=== PATIENT | male | born 1960 | race Caucasian/White ===

== ENCOUNTER 2022-06-25 06:47 | Day surgery (SDC) | payer MEDICAID, SELFPAY ==
[2022-06-25] VITALS (8 sets, daily range): BP systolic 110–126; BP diastolic 70–89; PULSE 65–89; RESP 18–22; TEMP 36.3–37.2; O2SAT 95–100; BMI 47.2
--- NOTE | 2022-06-25 06:55 | PCM.HP.BLA ---
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: No Is patient in pain?: No Allergies atorvastatin [From Lipitor] Allergy (Severe, Verified 05/27/22 08:09) leg issue Medications pantoprazole 40 mg tablet,delayed release 40 mg PO DAILY 01/31/15 [History Confirmed 05/27/22] duloxetine 60 mg capsule,delayed release 60 mg PO DAILY 04/15/22 [History Confirmed 05/27/22] gabapentin 300 mg capsule 300 mg PO TID PRN 04/15/22 [History Confirmed 05/27/22] hydrochlorothiazide 25 mg tablet 25 mg PO DAILY 04/15/22 [History Confirmed 05/27/22] lisinopril 30 mg tablet 30 mg PO DAILY 04/15/22 [History Confirmed 05/27/22] rosuvastatin 40 mg tablet 40 mg PO DAILY 04/15/22 [History Confirmed 05/27/22] tamsulosin 0.4 mg capsule 0.4 mg PO DAILY 04/15/22 [History Confirmed 05/27/22] tramadol 50 mg tablet 50 mg PO Q8H PRN 05/12/22 [History Confirmed 05/27/22] methocarbamol 500 mg tablet 500 mg PO .QID PRN 05/27/22 [History Confirmed 05/27/22] PFSH Medical History?(Updated 05/27/22 @ 08:[address] Lyle Stockton MD) Atrial fibrillation Back problem Essential hypertension GERD (gastroesophageal reflux disease) Hearing problem High cholesterol History of left heart catheterization (LHC) (~05/11/21) Hypertension Mixed hyperlipidemia SARAH (obstructive sleep apnea) Paroxysmal atrial fibrillation Right rotator cuff tear Ventricular tachyarrhythmia Surgical History? H/O laminectomy Status post ablation of incompetent vein using laser Family History?(Updated 05/27/22 @ 08:07 by Sherry Tuesday) Mother Colon cancer Diabetes Hypertension High cholesterol Uterine cancer Cancer ?? ? breastFather Myocardial infarction Heart disease Hypertension High cholesterolBrother Sleep apnea Diabetes HypertensionSister Autoimmune disease Fibromyalgia Hypertension Social History? household members:? spouse current occupational status:? retired current occupation:? 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 Never smoker Electronic Cigarette Use:? not used alcohol intake:? current alcohol intake frequency: holidays/special occasions only Alcohol type: beer and hard liquor substance use type:? does not use what type of physical activity do you participate in:? none do you feel safe at home:? Yes HPI HPI HPI: JADEN FRANCISCO, is a 62 M who presents to the office today for surgical consideration regarding pursuing a upper and lower endoscopy.? The patient is referred by Dr. Kelly Park and a written copy of my surgical consult recommendations return to her.? Laboratory as of May 10, 2022 demonstrates a white count of 8.1 with a normal 14.1 hematocrit 41.7 and platelet count of 296,000.? BUN is 22 and creatinine 0.76.? During her recent office visit the patient made note that he would like to have referral for screening colonoscopy.? In addition he has a history of gastroesophageal reflux disease.? He had had a recent fall from a ladder resulting in admission to [facility].? He has a history of atrial fibrillation.? Medical comorbidities include morbid obesity with a BMI between 40 and 44.9.? Among his other medications he is on pantoprazole 40 mg daily.? He is also on tramadol as needed. The patient has obstructive sleep apnea.? He is supposed to wear BiPAP.? He quickly states that he absolutely does not wear does not tolerate it.? He states that in the past he has had atrial fibrillation.? He states most the time he is in a regular rhythm.? He is not on any anticoagulant. States that he has had chronically swollen legs.? He has had right lower extremity venous ablation therapy about 5 to 6 years ago.? He denies history of pulmonary embolus or DVT.? He does not wear support hose He does agree and states that he does wheeze particularly if he is trying to lie flat.? He is not on any inhalers The patient states that he intermittently notices a feeling of a flap or movement or partial obstruction at his oropharynx that he has then massage and help clear.? He would like to have this evaluated ROS General General: No weight change, appetite, fatigue, colon cancer, breast cancer or weakness HEENT HEENT: No difficulty swallowing, eye injury, eye surgery, swollen glands or hoarseness Endo Endocrine: No thyroid disease, diabetes mellitus, thyroid cancer, Hair loss, heat intolerance or cold intolerance Skin Skin: No rash or changing moles Musc Musculoskeletal: Yes back problems and arthritis; No rheumatoid arthritis, gout or joint pain Cardio Cardiovascular: Yes atrial fibrillation and high blood pressure; No murmur, pacemaker, heart disease, heart attack, heart stent, palpitations, shortness of breat with exertion or chest pain Psych Psychiatric: No depression, anxiety or hearing voices Resp Respiratory: Yes shortness of breath, Yes sleep apnea, No cough, No COPD, No asthma, No emphysema and No wheezing Gastro Gastrointestinal: No abdominal pain, No nausea or vomiting, No diarrhea, No constipation, No blood in stool, Yes acid reflux, No hemorrhoids, No ulcers, No gallbladder problem and No black,tarry stools Jermaine Hematologic: No blood thinners, No blood disorders, No bleeding, No anemia and No blood clots Neuro Neurologic: No system reviewed and no additional complaints, except as documented, No as per HPI, No abnormal gait, No abnormal hearing, No abnormal movements, No abnormal speech, No behavioral changes, No burning sensations, No confusion, No convulsions, No disequilibrium, No dizziness, No localized weakness, No frequent falls, No headache(s), No lack of coordination, No loss of vision, No memory loss, No numbness, No other visual disturbances, No radicular pain, No restless legs, No sensory deficit, No syncope, No tingling, No tremor(s), No weakness and No other Exam Const General: cooperative, comfortable and no acute distress [facility] Head: normal to inspection Eyes General: appearance normal, both eyes and all related structures Neck Other: Thick neck no palpable masses Chest Chest palpation & inspection: normal inspection of the chest Resp Other: Expiratory wheezing no particular when the patient is lying supine.? Reasonable inspiratory effort Cardio Rate: tachycardic Rhythm: regular rhythm GI Other: Notably overweight, I cannot palpate any internal organs Musc Other: Mild cervical kyphosis Skin Other: Marked hyperpigmentation and lichenification of the skin of the both lower extremities Neuro General: patient alert, patient awake and patient oriented x3 Extrem General: no calf tenderness Psych Appearance: grossly normal Assessment and Plan Assessment and Plan (1) GERD (gastroesophageal reflux disease): ?Status:?Acute (2) Screening for intestinal cancer: ?Status:?Acute Plan I recommended the patient a combined esophagogastroduodenoscopy with possible biopsy.? Very careful inspection of the oropharynx to the best my ability will be pursued secondary to the patient's complaint of globus type sensation.? Also recommend to him a colonoscopy with possible biopsy or polypectomy.? An adult colonoscope will be utilized.? I anticipated a 2-day bowel prep secondary to anticipated larger fecal load. He is aware of the technique, benefit, risk and alternatives.? He has had an opportunity to ask and have questions answered. When he lies supine he does have audible wheezing.? I will asked that he present earlier than typical so that anesthesia can review to see whether he would benefit from a preintervention aerosol The patient is aware that his morbid obesity will make this more challenging.? He is only a couple weeks out from his fall from a ladder and rib fractures.? We will delay our endoscopic intervention for at least 3 to 4 weeks to allow for further recovery.? We will also definitively use monitored anesthesia care for increased observation. I appreciate the opportunity of assisting with the surgical care Copy: MD Lyle Alejandro M.D., F.A.C.S I have re-examined the patient. There are no clinical changes since date of exam. Lyle Stockton M.D., F.A.C.S.
[2022-06-25] MEDS: Lactated Ringers 1,000 ML 15 ML IV (07:30)
[2022-06-25] MEDS: Ipratropium/Albuterol Sulfate 3 ML AMPUL.NEB INHALATION (07:42)
--- NOTE | 2022-06-25 08:45 | IMM_PTH ---
PATIENT: JADEN FRANCISCO LOC: EN U#:[id number] AGE/SX: 62/M ROOM: RE06/25/[address]: Dr. Lyle Stockton MD : 1960 BED: DIS: 06/25/2022 SPEC #: [id number] RECD: 06/25/22 12:51 STATUS: TAMAR REJg #: [id number] SABINE: 06/25/22 08:[address]: Lyle Stockton DEPT: IMMUNOHISTOCHEMISTRY RECD BY: Nancy Hamm ENTERED: 06/25/22 12:52 SP TYPE: IMMUNO OTHR DR: Dr. Kelly Park MD Tissues: A - Stomach, NOS Procedures: H Pylori (initial) PHYSICIAN & INSTITUTION [place] [id number] SPECIMEN INFORMATION: Tissue Source: A ? Gastric antrum Clinical Info: GERD, screening Specimen Number: [id number] CPT code: 48719 METHODOLOGY: Deparaffinized sections of prefer/formalin-fixed tissue or PAP/DQ stained slides are incubated with monoclonal/polyclonal antibodies/oligonucleotide probes. Localization is made via biotin free immunoperoxidase method. Appropriate controls are performed and reacted as expected. Results on target cell population are indicated in the following table: RESULTS: ANTIBODY / CLONE RESULT Block A H Pylori (polyclonal) negative These tests were developed and their performance characteristics determined by [facility]. They may not have been cleared or approved by the U.S. Food and Drug Administration. The FDA has determined that such clearance or approval is not necessary. The above immunohistochemical/dualISH markers are ordered and reviewed by the Pathologist. INTERPRETATION: A. Gastric antrum, biopsy: Negative for Helicobacter pylori organisms. AM:vincent 06/28/2022
--- NOTE | 2022-06-25 08:45 | EGD_PTH ---
PATIENT: JADEN FRANCISCO LOC: EN U#:[id number] AGE/SX: 62/M ROOM: RE06/25/[address]: Dr. Lyle Stockton MD : 1960 BED: DIS: 06/25/2022 SPEC #: [id number] RECD: 06/25/22 10:57 STATUS: TAMAR ZULMA #: [id number] SABINE: 06/25/22 08:[address]: Lyle Stockton DEPT: SURGICAL PATHOLOGY RECD BY: Raven Marinelli ENTERED: 06/25/22 11:18 SP TYPE: EGD BIOPSY OT DR: Dr. Kelly Park MD Tissues: A - Gastric mucous membrane B - Gastric fundus C - Esophagus, NOS D - Transverse colon Procedures: Special Stain Group II Surgery Specimen Level IV Alcian Blue/PAS (control) HEADER OPERATION: Colonoscopy, EGD ([facility] [place]) PRE-OP DIAGNOSIS: GERD, screening TISSUE SUBMITTED: A ? Gastric antrum biopsy for H. pylori and pathology, B ? Fundus polyp biopsy, C ? Distal esophagus biopsy, D ? Mid transverse polyp biopsy MICROSCOPIC DIAGNOSIS A. Gastric antrum, biopsy: Mild chronic inflammation. See comment. B. Gastric fundus polyp, biopsy: Fundic gland polyp. C. Distal esophagus, biopsy: No pathologic change. No evidence of goblet cell metaplasia. See comment. D. Mid transverse colon polyp, biopsy: Tubular adenoma. AM:vincent 06/28/2022 COMMENT A. The results of immunohistochemistry for Helicobacter pylori will be reported separately ([id number]). C. Alcian blue/PAS stain with matched control supports the above diagnosis. Glandular mucosa is not represented in the biopsy. MICROSCOPIC DESCRIPTION Slides are reviewed. GROSS DESCRIPTION A - Received in fixative is one container labeled with the patient's name and designated gastric antrum. The specimen consists of two irregular fragments of light ellington soft tissue that in aggregate measure 0.6 x 0.5 x 0.1 cm. The specimen is totally submitted in one cassette. B - Received in fixative is one container labeled with the patient's name and designated fundic polyp. The specimen consists of one irregular fragment of light ellington soft tissue that measures 0.5 x 0.5 x 0.1 cm. The specimen is totally submitted in one cassette. C - Received in fixative is one container labeled with the patient's name and designated distal esophagus. The specimen consists of multiple irregular fragments of light ellington soft tissue that in aggregate measure 1 x 0.2 x 0.1 cm. The specimen is totally submitted in one cassette. D - Received in fixative is one container labeled with the patient's name and designated mid transverse polyp. The specimen consists of one irregular fragment of light ellington soft tissue that measures 0.5 x 0.5 x 0.1 cm. The specimen is totally submitted in one cassette. / AM:vincent 06/25/2022 TC:3 CPT: 23987 x4, 96341
--- NOTE | 2022-06-25 09:56 | OP.EGD_ITS ---
Patient Name: Manuel Mcneill Procedure Date: 06/25/2022 9:09 AM Date of : 1960 Age: 62 Procedure: Upper GI endoscopy Indications: Dysphagia, Suspected esophageal reflux Providers: Lyle Stockton MD Medicines: See the Anesthesia note for documentation of the administered medications Complications: No immediate complications. Procedure: Pre-Anesthesia Assessment: - Prior to the procedure, a History and Physical was performed, and patient medications and allergies were reviewed. The patient's tolerance of previous anesthesia was also reviewed. The risks and benefits of the procedure and the sedation options and risks were discussed with the patient. All questions were answered, and informed consent was obtained. Prior Anticoagulants: The patient has taken no previous anticoagulant or antiplatelet agents. ASA Grade Assessment: III - A patient with severe systemic disease. After reviewing the risks and benefits, the patient was deemed in satisfactory condition to undergo the procedure. After obtaining informed consent, the endoscope was passed under direct vision. Throughout the procedure, the patient's blood pressure, pulse, and oxygen saturations were monitored continuously. The colonoscope was introduced through the mouth, and advanced to the second part of duodenum. The upper GI endoscopy was accomplished without difficulty. The patient tolerated the procedure well. Scope In: 9:20:19 AM Scope Out: 9:26:35 AM Total Procedure Duration Time 0 hours 6 minutes 16 seconds Findings: LA Grade A (one or more mucosal breaks less than 5 mm, not extending between tops of 2 mucosal folds) esophagitis with no bleeding was found 41 cm from the incisors. Biopsies were taken with a cold forceps for histology. A small hiatal hernia was present. Multiple sessile polyps with no bleeding and no stigmata of recent bleeding were found on the greater curvature of the stomach. The polyp was removed with a cold biopsy forceps. Resection and retrieval were complete. Diffuse mildly erythematous mucosa without bleeding was found in the gastric antrum. Biopsies were taken with a cold forceps for histology. The examined duodenum was normal. Impression: - LA Grade A reflux esophagitis. Biopsied. - Small hiatal hernia. - Multiple gastric polyps. Resected and retrieved. - Erythematous mucosa in the antrum. Biopsied. - Normal examined duodenum. Recommendation: - Discharge patient to home. - Resume previous diet. - Continue present medications. - Use sucralfate tablets 1 gram PO BID. - Telephone my office for pathology results in 1 week. Procedure Code(s): --- Professional --- 21251, Esophagogastroduodenoscopy, flexible, transoral; with biopsy, single or multiple Diagnosis Code(s): --- Professional --- K21.0, Gastro-esophageal reflux disease with esophagitis K44.9, Diaphragmatic hernia without obstruction or gangrene K31.7, Polyp of stomach and duodenum K31.89, Other diseases of stomach and duodenum R13.10, Dysphagia, unspecified CPT copyright 2017 [employer]. All rights reserved. The codes documented in this report are preliminary and upon motor setter review may be revised to meet current compliance requirements. Lyle Stockton MD 06/25/2022 9:56:04 AM This report has been signed electronically. Number of Addenda: 0 Note Initiated On: 06/25/2022 9:09 AM
--- NOTE | 2022-06-25 09:56 | OP.CCLET_ITS ---
06/25/2022 Kelly Park Md Re : Upper GI endoscopy procedure for Manuel Mcneill Dear Xavier This procedure was performed on Saturday, June 25, 2022. My impressions and recommendations are as follows: Impressions : - LA Grade A reflux esophagitis. Biopsied. - Small hiatal hernia. - Multiple gastric polyps. Resected and retrieved. - Erythematous mucosa in the antrum. Biopsied. - Normal examined duodenum. Recommendations : - Discharge patient to home. - Resume previous diet. - Continue present medications. - Use sucralfate tablets 1 gram PO BID. - Telephone my office for pathology results in 1 week. My findings are described in the full procedure note, which is enclosed. If I can be of further assistance, please feel free to contact me at Doctor phone number(s): Work: . Sincerely, Lyle Stockton MD 06/25/2022 9:56:04 AM This report has been signed electronically.
--- NOTE | 2022-06-25 10:01 | OP.COLON_ITS ---
Patient Name: Manuel Mcneill Procedure Date: 06/25/2022 9:28 AM Date of : 1960 Age: 62 Procedure: Colonoscopy Indications: Screening for colorectal malignant neoplasm Providers: Lyle Stockton MD Medicines: See the Anesthesia note for documentation of the administered medications Patient Profile: Last Colonoscopy: none. The patient's first colonoscopy is today. Complications: No immediate complications. Procedure: Pre-Anesthesia Assessment: - Prior to the procedure, a History and Physical was performed, and patient medications and allergies were reviewed. The patient's tolerance of previous anesthesia was also reviewed. The risks and benefits of the procedure and the sedation options and risks were discussed with the patient. All questions were answered, and informed consent was obtained. Prior Anticoagulants: The patient has taken no previous anticoagulant or antiplatelet agents. ASA Grade Assessment: III - A patient with severe systemic disease. After reviewing the risks and benefits, the patient was deemed in satisfactory condition to undergo the procedure. After I obtained informed consent, the scope was passed under direct vision. Throughout the procedure, the patient's blood pressure, pulse, and oxygen saturations were monitored continuously. The adult colonoscope was introduced through the anus and advanced to the cecum, identified by appendiceal orifice and ileocecal valve. The colonoscopy was unusually difficult due to the patient's body habitus and the patient's oxygen desaturation. The patient tolerated the procedure fairly well. The quality of the bowel preparation was fair. Scope In: Scope Withdrawal Time 0 hours 16 minutes 7 seconds Scope Out: 9:50:38 AM Findings: Hemorrhoids were found on perianal exam. The digital rectal exam findings include enlarged prostate. A 4 mm polyp was found in the mid transverse colon. The polyp was sessile. The polyp was removed with a cold biopsy forceps. Resection and retrieval were complete. Multiple diverticula were found in the sigmoid colon and descending colon. Impression: - Preparation of the colon was fair. - Hemorrhoids found on perianal exam. - Enlarged prostate found on digital rectal exam. - One 4 mm polyp in the mid transverse colon, removed with a cold biopsy forceps. Resected and retrieved. - Diverticulosis in the sigmoid colon and in the descending colon. Recommendation: - Discharge patient to home. - Resume previous diet. - Continue present medications. - Repeat colonoscopy in 5 years for surveillance of multiple polyps. - Telephone my office for pathology results in 1 week. Procedure Code(s): --- Professional --- 39307, Colonoscopy, flexible; with biopsy, single or multiple Diagnosis Code(s): --- Professional --- Z12.11, Encounter for screening for malignant neoplasm of colon K64.9, Unspecified hemorrhoids D12.3, Benign neoplasm of transverse colon (hepatic flexure or splenic flexure) K57.30, Diverticulosis of large intestine without perforation or abscess without bleeding N40.0, Benign prostatic hyperplasia without lower urinary tract symptoms CPT copyright 2017 [employer]. All rights reserved. The codes documented in this report are preliminary and upon business analyst ecommerce review may be revised to meet current compliance requirements. Lyle Stockton MD 06/25/2022 10:01:29 AM This report has been signed electronically. Number of Addenda: 0 Note Initiated On: 06/25/2022 9:28 AM
--- NOTE | 2022-06-25 10:01 | OP.CCLET_ITS ---
06/25/2022 Kelly Park Md Re : Colonoscopy procedure for Manuel Mcneill Dear Xavier This procedure was performed on Saturday, June 25, 2022. My impressions and recommendations are as follows: Impressions : - Preparation of the colon was fair. - Hemorrhoids found on perianal exam. - Enlarged prostate found on digital rectal exam. - One 4 mm polyp in the mid transverse colon, removed with a cold biopsy forceps. Resected and retrieved. - Diverticulosis in the sigmoid colon and in the descending colon. Recommendations : - Discharge patient to home. - Resume previous diet. - Continue present medications. - Repeat colonoscopy in 5 years for surveillance of multiple polyps. - Telephone my office for pathology results in 1 week. My findings are described in the full procedure note, which is enclosed. If I can be of further assistance, please feel free to contact me at Doctor phone number(s): Work: . Sincerely, Lyle Stockton MD 06/25/2022 10:01:29 AM This report has been signed electronically.
== END 2022-06-25 10:47 | disposition home or self-care (01) ==
LOC: EN 06:47 → AC 06:48
PROVIDERS: PCP Internal Medicine; Referring Provider Internal Medicine; Visit Provider Surgery
PROC: 0DJD8ZZ Inspection of Lower Intestinal Tract, Via Natural or Artificial Opening Endoscopic (ICD-10-PCS; CPT 45378; principal; 2022-06-25 08:40)
DX: Z12.11 Encounter for screening for malignant neoplasm of colon (principal); D12.3 Benign neoplasm of transverse colon; K31.7 Polyp of stomach and duodenum; K44.9 Diaphragmatic hernia without obstruction or gangrene; K21.00 Gastro-esophageal reflux disease with esophagitis, without bleeding; R13.10 Dysphagia, unspecified; K57.30 Diverticulosis of large intestine without perforation or abscess without bleeding; K64.9 Unspecified hemorrhoids; N40.0 Benign prostatic hyperplasia without lower urinary tract symptoms; G47.33 Obstructive sleep apnea (adult) (pediatric); E66.01 Morbid (severe) obesity due to excess calories; Z68.41 Body mass index [BMI] 40.0-44.9, adult; Z79.899 Other long term (current) drug therapy; Z80.0 Family history of malignant neoplasm of digestive organs
CPT/HCPCS: 43239; 45380; 88305; 88313; 88342; 94640; J7120

== ENCOUNTER → 2022-06-28 | Outpatient (CLI) | payer MEDICAID, SELFPAY ==
--- NOTE | 2022-06-28 13:40 | ECHOCS_ITS ---
Reason For Study: ARRHYTHMIA Procedure This was a 2D Doppler, Color Flow transthoracic echocardiogram. The study was technically difficult. Due to body habitus. Contrast injection was performed. Exam performed in department. Left Ventricle Based upon the 2D echocardiographic and contrast enhanced images obtained there appears to be grossly normal left ventricular size, wall motion, and systolic function. The estimated ejection fraction is 60 %. No evidence for diastolic dysfunction. Right Ventricle Based upon the 2D echocardiographic images obtained there appears to be grossly normal right ventricular size and systolic function. Atria Normal left atrium. Normal right atrium. No doppler evidence for ASD. Mitral Valve There is no mitral annular calcification. Normal mitral valve. Tricuspid Valve Normal tricuspid valve. Aortic Valve The aortic valve is not well visualized. Pulmonic Valve The pulmonic valve is not well visualized. Great Vessels The aortic root is not well visualized. Pericardium/Pleural No pericardial effusion. Medication 22 gauge I.V. with prn adaptor inserted into left arm. Diluted definity 3.0ml given slow IV push to enhance endocardial definition. MMode/2D Measurements & Calculations RVDd: 3.4 cm LAV(MOD-bp): 64.5 ml LVAd ap4: 27.4 cm2 LAV(MOD-bp) Indexed: 27.4 ml/m2 LVLd ap4: 8.0 cm LAV(MOD-sp2): 61.4 ml EDV(MOD-sp4): 79.4 ml LAV(MOD-sp4): 61.8 ml EDV(sp4-el): 79.0 ml LVAs ap4: 17.6 cm2 LVLs ap4: 8.2 cm ESV(MOD-sp4): 33.5 ml ESV(sp4-el): 32.0 ml EF(MOD-sp4): 57.8 % EF(sp4-el): 59.5 % LVAd ap2: 15.3 cm2 SV(MOD-sp4): 45.9 ml SV(MOD-sp2): 14.0 ml LVLd ap2: 7.9 cm EDV(MOD-sp2): 24.3 ml EDV(sp2-el): 25.1 ml LVAs ap2: 8.8 cm2 LVLs ap2: 6.3 cm ESV(MOD-sp2): 10.3 ml ESV(sp2-el): 10.4 ml EF(MOD-sp2): 57.6 % SV(sp4-el): 47.0 ml LA A4 area: 22.6 cm2 LA dimension(2D): 4.4 cm RA A4 area: 18.2 cm2 Time Measurements MV dec time: 0.18 sec Doppler Measurements & Calculations MV E max walker: 69.1 cm/sec Lat Peak E' Walker: 11.6 cm/sec Med Peak E' Walker: 12.7 cm/sec MV A max walker: 72.0 cm/sec E/E' lat: 6.0 E/E' med: 5.4 MV E/A: 0.96 Ao V2 max: 141.7 cm/sec LV V1 max: 100.3 cm/sec MV dec slope: 400.1 cm/sec2 Ao max P.0 mmHg LV V1 max P.0 mmHg Ao V2 mean: 106.1 cm/sec LV V1 mean P.5 mmHg Ao mean P.8 mmHg LV V1 mean: 76.5 cm/sec Ao V2 VTI: 27.1 cm LV V1 VTI: 22.7 cm PA V2 max: 119.6 cm/sec ECHO/Echo Complete W/ Contrast Interpretation Summary The study was technically difficult. Contrast injection was performed. Based upon the 2D echocardiographic and contrast enhanced images obtained there appears to be grossly normal left ventricular size, wall motion, and systolic function. The estimated ejection fraction is 60 %. No evidence for diastolic dysfunction. Ordering Physician: Baldev Johnson Referring Physician: Kelly Park Performed By: Angle Hernandez, RDCS, RVT
== END | disposition home or self-care (01) ==
LOC: CVS 13:39
PROVIDERS: PCP Internal Medicine; Referring Provider Internal Medicine Cardiovascular Disease; Visit Provider Internal Medicine Cardiovascular Disease
DX: I49.9 Cardiac arrhythmia, unspecified (principal); R60.9 Edema, unspecified
CPT/HCPCS: 93306; Q9957; A4216; C8929

== ENCOUNTER → 2022-09-02 | Outpatient (CLI) | payer MEDICAID, SELFPAY ==
[2022-09-02 12:20] LABS: Absolute Lymphocyte Count 2.11 X10^3/uL (0.83-4.51); Absolute Neutrophil Count 3.1 X10^3/uL (2.0-7.7); Basophil# 0.03 X10^3/uL; Basophil% 0.5 % (0-1); Eosinophil# 0.16 X10^3/uL; Eosinophils% 2.7 % (0-5); Hematocrit 47.6 % (40-54); Hemoglobin 16.7 g/dL (13.0-16.5); Lymphocyte # 2.11 X10^3/ul (0.83-4.51); Lymphocyte % 35.3 % (19-41); Mean Corp Hgb Conc 35.1 g/dL (32-36); Mean Corpuscular Hgb 30.6 pg (27.0-32.0); Mean Corpuscular Volume 87.2 fL (80-94); Mean Platelet Vol. 11.2 fl (6.2-12.0); Monocyte# 0.51 X10^3/uL; Monocyte% 8.5 % (0-10); NRBC Flagged by Analyzer 0 % (0-5); Neutrophil # 3.14 X10^3/uL (2.7-7.7); Neutrophil % 52.7 % (47-70); Platelet Count 209 K/mm3 (150-450); RBC Distribution Width CV 13.3 % (11.6-14.6); RBC Distribution Width SD 42.3 fl (35.1-43.9); Red Blood Count 5.46 M/mm3 (4.6-6.2)
[2022-09-02 13:19] LABS: ALB/GLOB Ratio 0.9 RATIO (0.9-2.4); AST(SGOT) 29 U/L (15-37); Alanine Aminotransfer ALT/SGPT 32 U/L (16-61); Albumin, Serum 3.7 g/dL (3.2-5.0); Alkaline Phosphatase 118 U/L (45-117); Anion Gap 8 (5-15); BUN 23 mg/dL (7-18); BUN/Creat Ratio 25.9 RATIO (10-20); Calcium,Total 9.2 mg/dL (8.5-10.1); Chloride 105 mmol/L (98-107); Cholesterol 193 mg/dL (200); Creatinine, Serum 0.89 mg/dL (0.70-1.30); EST Glomerular Filtration Rate 92 mL/min (>60); Est Glom Filt Rate - Afr Amer 111 mL/min (>60); Glucose 99 mg/dL (74-106); High Density Lipoprotein 59 mg/dL; Potassium 3.6 mmol/L (3.5-5.1); Protein, Total 7.7 g/dL (6.4-8.2); Sodium Level 139 mmol/L (136-145); Triglycerides 172 mg/dL; Very Low Density Lipoprotein 34 mg/dL (5-40)
== END | disposition home or self-care (01) ==
LOC: BIMLAB 10:26
PROVIDERS: PCP Internal Medicine; Visit Provider Internal Medicine
DX: N40.1 Benign prostatic hyperplasia with lower urinary tract symptoms (principal); R35.0 Frequency of micturition; I10 Essential (primary) hypertension; E78.2 Mixed hyperlipidemia
CPT/HCPCS: 36415; 80053; 80061; 84153; 85025

== ENCOUNTER 2023-02-15 08:58 | Outpatient (RCR) | payer MEDICAID, SELFPAY | END 2023-02-18 23:59 | LOC: NS 08:58 | PROVIDERS: PCP Internal Medicine; Visit Provider Internal Medicine | DX: Z71.3 Dietary counseling and surveillance (principal); E66.01 Morbid (severe) obesity due to excess calories; Z68.41 Body mass index [BMI] 40.0-44.9, adult | CPT/HCPCS: 97802 ==

== ENCOUNTER 2023-03-09 09:00 | Outpatient (RCR) | payer MEDICAID, SELFPAY | END 2023-03-20 23:59 | LOC: NS 09:00 | PROVIDERS: PCP Internal Medicine; Referring Provider Internal Medicine; Visit Provider Internal Medicine | DX: Z71.3 Dietary counseling and surveillance (principal); E66.01 Morbid (severe) obesity due to excess calories; Z68.41 Body mass index [BMI] 40.0-44.9, adult | CPT/HCPCS: 97803 ==

== ENCOUNTER 2023-03-29 09:33 | Outpatient (RCR) | payer MEDICAID, SELFPAY | END 2023-04-20 23:59 | LOC: NS 09:33 | PROVIDERS: PCP Internal Medicine; Referring Provider Internal Medicine; Visit Provider Internal Medicine | DX: Z71.3 Dietary counseling and surveillance (principal); E66.01 Morbid (severe) obesity due to excess calories; Z68.41 Body mass index [BMI] 40.0-44.9, adult | CPT/HCPCS: 97803 ==

== ENCOUNTER → 2023-06-23 | Outpatient (CLI) | payer MEDICAID, SELFPAY ==
[2023-06-23 10:10] LABS: Bacteria 0 SEEN /hpf (None Seen); Mucous, Urine 0 SEEN /hpf (<or=2+); Red Blood Cells-Urine 0 SEEN /hpf (0-5); Squamous Epithelial Cells - UA 0 SEEN /hpf (0-5); White Blood Cells 0 SEEN /hpf (0-5)
[2023-06-23 13:06] LABS: Color, Urine Yellow (Yellow); Glucose, Dipstick Normal (Normal); Ketone-Dipstick Negative (Negative); Leukocyte Esterase-Dipstick Negative /ul (Negative); Nitrite-Dipstick Negative (Negative); Occult Blood-Urine Negative /ul (Negative); Protein-Dipstick Negative (Negative); Urine Bilirubin Dipstick Negative (Negative); Urine Clarity Clear (Clear); Urine Urobilinogen Normal (Normal); Urine pH 6.5 (5.0 - 8.0)
[2023-06-23 13:14] LABS: Anion Gap 5 (5-15); BUN 16 mg/dL (7-18); BUN/Creat Ratio 20.1 RATIO (10-20); Calcium,Total 8.9 mg/dL (8.5-10.1); Chloride 105 mmol/L (98-107); EST Glomerular Filtration Rate 104 mL/min (>60); Est Glom Filt Rate - Afr Amer 126 mL/min (>60); Glucose 94 mg/dL (74-106); Potassium 4.1 mmol/L (3.5-5.1); Sodium Level 140 mmol/L (136-145)
== END | disposition home or self-care (01) ==
LOC: BIMLAB 09:48
PROVIDERS: PCP Internal Medicine; Referring Provider Internal Medicine; Visit Provider Internal Medicine
DX: R10.9 Unspecified abdominal pain (principal); I48.0 Paroxysmal atrial fibrillation; I47.20 Ventricular tachycardia, unspecified
CPT/HCPCS: 36415; 80048; 81001

== ENCOUNTER → 2023-07-11 | Outpatient (CLI) | payer MEDICAID, SELFPAY ==
--- NOTE | 2023-07-11 19:04 | CT_ITS ---
EXAM: CT ABDOMEN AND PELVIS WITHOUT INTRAVENOUS CONTRAST CLINICAL INDICATION: right flank pain right flank pain TECHNIQUE: Helically acquired images were obtained of the abdomen and pelvis without intravenous contrast. This CT exam was performed using one or more of the following dose reduction techniques: automated exposure control, adjustment of the mA and/or kV according to patient size, and/or use of iterative reconstruction technique. RADIATION DOSE: CTDIvol = 22.70 mGy, DLP = 1190.93 mGy-cm COMPARISON: No relevant prior studies available. FINDINGS: LOWER THORAX: As seen on axial images 5-12, there is a 1.5 cm irregularly shaped pleural-based nodular density in the right lower lobe. Fleischner Society Guidelines recommend a follow-up chest CT in 6-12 months in patients with a low or high risk of malignancy. There is a small hiatal hernia. No cardiomegaly. No significant pericardial effusion. ABDOMEN: LIVER: There is decreased attenuation of liver consistent with fatty infiltration. There is a small cyst in the right lobe of liver, for which no further evaluation is necessary. GALLBLADDER AND BILE DUCTS: Unremarkable. No calcified gallstones. No gallbladder distention or wall edema. No intra- or extrahepatic biliary ductal dilation. PANCREAS: Unremarkable. No focal cystic mass. SPLEEN: There is a calcified splenic granuloma. ADRENALS: Unremarkable. No nodules. KIDNEYS AND URETERS: There are bilateral renal cysts which are simple in appearance or too small to reliably characterize. No follow-up imaging is necessary for simple renal cysts or cysts that are too small to characterize. Normal renal size and position. No hydronephrosis. STOMACH AND BOWEL: There is infiltration of central mesenteric fat, which may represent mesenteritis. No stomach or bowel distention. PELVIS: APPENDIX: A normal appendix is seen on axial images 104-117. BLADDER: Unremarkable. REPRODUCTIVE: The prostate gland is enlarged. ABDOMEN and PELVIS: INTRAPERITONEAL SPACE: Unremarkable. No ascites or other fluid collection. No free air. BONES/JOINTS: There are multilevel degenerative changes in the visualized spine. There is bilateral spondylolysis and grade 1 spondylolisthesis at the L5-4-5 level. There are laminectomy defects at the L4 and L5 levels. There are multiple old healed right rib fractures. No suspicious lytic or blastic abnormality. SOFT TISSUES: Unremarkable. No discrete abdominal or pelvic wall hernia. VASCULATURE: There is mild atherosclerotic calcification of the abdominal aorta. Abdominal aorta is non-dilated. LYMPH NODES: Unremarkable. No enlarged lymph nodes. CT/Abdomen/Pelvis without Cont IMPRESSION: 1. 1.5 cm irregularly shaped pleural-based nodular density in the right lower lobe. Fleischner Society Guidelines recommend a follow-up chest CT in 6-12 months in patients with a low or high risk of malignancy. 2. Fatty liver. 3. Infiltration of central mesenteric fat may represent mesenteritis. 4. Atherosclerosis. 5. Mildly enlarged prostate. 6. Small hiatal hernia. 7. No demonstrated urinary calculi or hydronephrosis. Electronically Signed: Jhon Edmonds MD at 7:37 EDT ,
== END | disposition home or self-care (01) ==
LOC: CT 18:58
PROVIDERS: PCP Internal Medicine; Visit Provider Internal Medicine
DX: R10.9 Unspecified abdominal pain (principal)
CPT/HCPCS: 74176

== ENCOUNTER → 2023-08-24 | Outpatient (CLI) | payer MEDICAID, SELFPAY ==
[2023-08-24 12:32] LABS: Absolute Lymphocyte Count 2.28 X10^3/uL (0.83-4.51); Absolute Neutrophil Count 3.3 X10^3/uL (2.0-7.7); Basophil# 0.05 X10^3/uL; Basophil% 0.8 % (0-1); Eosinophil# 0.13 X10^3/uL; Eosinophils% 2.1 % (0-5); Hematocrit 46.4 % (40-54); Hemoglobin 15.8 g/dL (13.0-16.5); Lymphocyte # 2.28 X10^3/ul (0.83-4.51); Lymphocyte % 36.7 % (19-41); Mean Corp Hgb Conc 34.1 g/dL (32-36); Mean Corpuscular Hgb 30.4 pg (27.0-32.0); Mean Corpuscular Volume 89.2 fL (80-94); Mean Platelet Vol. 11.3 fl (6.2-12.0); NRBC Flagged by Analyzer 0 % (0-5); Neutrophil # 3.25 X10^3/uL (2.7-7.7); Neutrophil % 52.2 % (47-70); Platelet Count 234 K/mm3 (150-450); RBC Distribution Width CV 12.8 % (11.6-14.6); RBC Distribution Width SD 41.7 fl (35.1-43.9); White Blood Count 6.2 K/mm3 (4.4-11.0)
[2023-08-24 13:08] LABS: AST(SGOT) 16 U/L (15-37); Alanine Aminotransfer ALT/SGPT 32 U/L (16-61); Albumin, Serum 3.8 g/dL (3.2-5.0); Alkaline Phosphatase 97 U/L (45-117); Anion Gap 6 (5-15); BUN 18 mg/dL (7-18); BUN/Creat Ratio 19.1 RATIO (10-20); Calcium,Total 8.9 mg/dL (8.5-10.1); Chloride 104 mmol/L (98-107); Cholesterol 192 mg/dL (200); Creatinine, Serum 0.94 mg/dL (0.70-1.30); EST Glomerular Filtration Rate 85 mL/min (>60); Est Glom Filt Rate - Afr Amer 103 mL/min (>60); Globulin 3.7 g/dL (2.2-4.2); Glucose 112 mg/dL (74-106); High Density Lipoprotein 61 mg/dL; Potassium 3.8 mmol/L (3.5-5.1); Protein, Total 7.5 g/dL (6.4-8.2); Sodium Level 139 mmol/L (136-145); Triglycerides 161 mg/dL; Very Low Density Lipoprotein 32 mg/dL (5-40)
== END | disposition home or self-care (01) ==
LOC: BIMLAB 10:53
PROVIDERS: PCP Internal Medicine; Referring Provider Internal Medicine; Visit Provider Internal Medicine
DX: I10 Essential (primary) hypertension (principal); N40.1 Benign prostatic hyperplasia with lower urinary tract symptoms; R35.0 Frequency of micturition
CPT/HCPCS: 36415; 80053; 80061; 84153; 85025

== ENCOUNTER → 2023-08-26 | Outpatient (CLI) | payer MEDICAID, SELFPAY ==
--- NOTE | 2023-08-26 14:37 | CT_ITS ---
INDICATION: new lung nodule on CT abdomen EXAMINATION: CT Chest W/ Contrast Injection TECHNIQUE: Helically acquired images were obtained of the chest following administration of IV contrast. A radiation dose optimization technique was used for this scan. 3D postprocessing images including MIPS were reviewed. IV Contrast dosage and agent: IV 100mL [id number] COMPARISON: 07/11/2023. FINDINGS: Lungs: Grossly stable size of a irregularly-shaped pleural-based nodule in the right lower lobe measuring 1.3 cm. Clustered calcified granulomas in the left upper lobe. Mediastinum: The cardiomediastinal silhouette is not enlarged. No mediastinal, hilar or axillary adenopathy. Mild aortic arch and coronary artery calcifications. No obvious filling defect seen within the visualized pulmonary arteries. Pleura: Unremarkable Bones/Soft tissues: There are diffuse degenerative changes of the spine. Upper abdomen: Fatty liver. CT/Chest WITH Contrast IMPRESSION: Grossly stable size of a irregularly-shaped pleural-based nodule in the right lower lobe measuring 1.3 cm. Per Fleischner criteria, recommend additional follow-up chest CT in 3 months. Fatty liver. Electronically Signed: Maximilian Beaulieu MD at 21:39 EDT ,
[2023-08-26 15:04] LABS: CREATININE FINGERSTICK 0.9 mg/dL (0.70-1.30); EGFR FINGERSTICK > 60.0000 mL/min (>60)
== END | disposition home or self-care (01) ==
LOC: CT 14:36
PROVIDERS: PCP Internal Medicine; Referring Provider Internal Medicine; Visit Provider Internal Medicine
DX: R91.1 Solitary pulmonary nodule (principal)
CPT/HCPCS: 71260; Q9967